=== PATIENT | male | born 1945 | race Caucasian/White ===

== ENCOUNTER 2018-12-08 19:39 | Emergency (ER) | payer MEDICARE, OTHER ==
[~2018-12-08] VITALS: Ht 175.3 cm; Wt 113.6 kg
[~2018-12-08 19:39] MED LIST: EPINEPHrine 1:10,000 [1 MG/10 ML] SYRINGE ONE
[2018-12-08 20:00] VITALS: BP 0/0
== END 2018-12-08 22:03 | disposition expired ==
LOC: EMS 19:40
DX: I46.9 Cardiac arrest, cause unspecified (principal); K21.9 Gastro-esophageal reflux disease without esophagitis; E03.9 Hypothyroidism, unspecified; I13.2 Hypertensive heart and chronic kidney disease with heart failure and with stage 5 chronic kidney disease, or end stage renal disease; E11.22 Type 2 diabetes mellitus with diabetic chronic kidney disease; N18.6 End stage renal disease; I50.9 Heart failure, unspecified; F17.200 Nicotine dependence, unspecified, uncomplicated; Z99.2 Dependence on renal dialysis; Z95.0 Presence of cardiac pacemaker
CPT/HCPCS: 92950; 99285; J0171